=== PATIENT | male | born 1985 | race Caucasian/White ===

== ENCOUNTER 2017-08-13 11:58 | Emergency (ER) | payer OTHER ==
[~2017-08-13] VITALS: Ht 177.8 cm; Wt 70.8 kg
[2017-08-13 14:07] LABS: MCV 83.2 fL (80.0-100.0)
[2017-08-13 14:08] LABS: ABSOLUTE NEUTROPHILS 13.6 thou/uL (1.4-8.2); BASOPHILS 0.4 % (0.0-2.0); EOSINOPHILS 0.6 % (0.0-3.0); HEMOGLOBIN 15.3 gm/dL (14.0-18.0); LYMPHOCYTES 15.9 % (24.0-44.0); MCH 28.2 pg (26.0-34.0); MCHC 33.9 g/dL (28.0-37.0); MONOCYTES 6.2 % (1.0-8.0); PLATELET COUNT 287 thou/uL (150-400); POLYS 76.9 % (36.0-66.0); RBC 5.41 mil/uL (4.50-6.00); RDW 13.1 % (10.5-14.5); WBC 17.7 thou/uL (4.0-11.0)
[2017-08-13 14:11] LABS: POTASSIUM 3.5 mmol/L (3.5-5.1)
[2017-08-13 15:15] LABS: URINE BILIRUBIN 1+ (Negative); URINE BLOOD 3+ (Negative); URINE CLARITY CLEAR; URINE COLOR YELLOW; URINE GLUCOSE-RANDOM* NEGATIVE (Negative); URINE KETONES TRACE (Negative); URINE LEUKOCYTES NEGATIVE (Negative); URINE NITRITE NEGATIVE (Negative); URINE PROTEIN (DIPSTICK) 1+ (Negative); URINE SPECIFIC GRAVITY >= 1.030 (1.005-1.035); URINE UROBILINOGEN 0.2 E.U./dl (0.2-1.0)
[2017-08-13 15:28] LABS: BACTERIA None Seen /HPF (None Seen); CALCIUM OXALATE >10 Many /LPF (None Seen); SQUAMOUS None Seen /LPF (0-3); URINE RBC >20 Many /HPF (0-2); URINE WBC None Seen /HPF (0-5)
== END 2017-08-13 16:47 | disposition home or self-care (01) ==
LOC: ER 11:58
PROVIDERS: Nurse Practitioner Family
DX: N20.0 Calculus of kidney (principal)